=== PATIENT | female | born 1990 | race Caucasian/White ===

== ENCOUNTER 2020-06-09 15:57 | Outpatient (CLI) | payer MEDICAID ==
[~2020-06-09 15:57] MED LIST: DOCU-131 PO; IBUP-1222 PO; PREN1TAB56 PO
== END 2020-06-09 23:59 | disposition home or self-care (01) ==
LOC: STAR 15:57
PROVIDERS: ATTEND Obstetrics & Gynecology
DX: Z01.818 Encounter for other preprocedural examination (principal); Z11.59 Encounter for screening for other viral diseases
CPT/HCPCS: 36415; 87635

== ENCOUNTER 2020-06-18 04:46 | Inpatient (IN) | payer MEDICAID ==
[~2020-06-18] VITALS: Ht 162.6 cm; Wt 71.0 kg
[2020-06-18] MEDS ORDERED: OXYTOCIN 30U/ 0.9% NaCL 500ML 500 ML IV ONE (06:02)
[2020-06-18] MEDS ORDERED: OXYTOCIN 30U/ 0.9% NaCL 500ML 500 ML IV PRN (06:02)
[2020-06-18] MEDS ORDERED: D5%-LACTATED RINGERS 1,000 ML IV SCH (06:02)
[2020-06-18] MEDS ORDERED: OXYTOCIN 30U/ 0.9% NaCL 500ML 500 ML ONE ×2 (06:06→12:49)
[2020-06-18] MEDS ORDERED: LIDOCAINE 1%, 20ML ONE (06:06)
[2020-06-18] MEDS ORDERED: NEWBORN KIT ONE (06:06)
[2020-06-18] MEDS ORDERED: MISOPROSTOL 200 MCG TABLET ONE (06:06)
[2020-06-18 06:15] VITALS: BP 118/74
[2020-06-18 06:25] LABS: BASOPHILS # (AUTO) 0.03 x10^3/uL (0-0.1); BASOPHILS % (AUTO) 0 % (0-1); EOSINOPHILS # (AUTO) 0.13 x10^3/uL (0-0.4); EOSINOPHILS % (AUTO) 2 % (1-7); LYMPHOCYTES # (AUTO) 1.91 x10^3/uL (1-3.4); LYMPHOCYTES % (AUTO) 28 % (22-44); MD NO; MEAN CORPUSCULAR HEMOGLOBIN 29.7 pg (27.0-34.8); MEAN CORPUSCULAR HGB CONC 33.1 g/dL (32.4-35.8); MEAN CORPUSCULAR VOLUME 89.7 fL (80-100); MEAN PLATELET VOLUME 8.7 fL (7.4-10.4); MONOCYTES # (AUTO) 0.44 x10^3/uL (0.2-0.8); MONOCYTES % (AUTO) 6 % (2-9); NEUTROPHILS % (AUTO) 64 % (42-75); PLATELET COUNT 205 x10^3/uL (130-400); RED BLOOD COUNT 4.41 x10^6/uL (3.82-5.3); RED CELL DISTRIBUTION WIDTH 15.8 % (9.6-15.2)
[2020-06-18] MEDS: LACTATED RINGERS 1,000 ML IV SCH ×2 (06:25→11:27)
[2020-06-18] MEDS ORDERED: CALCIUM CARBONATE 500 MG TAB.CHEW PO PRN ×2 (06:30→12:00)
[2020-06-18] MEDS ORDERED: TERBUTALINE 1 MG/ML, 1ML SQ PRN (06:30)
[2020-06-18] MEDS ORDERED: METOCLOPRAMIDE 5 MG/ML, 2ML IVPush PRN (06:30)
[2020-06-18] MEDS ORDERED: PLEASE ENTER HEIGHT AND WEIGHT MC SCH (06:30)
[2020-06-18] MEDS ORDERED: ONDANSETRON 2MG/ML, 2ML IVPush PRN (06:30)
[2020-06-18] MEDS ORDERED: SODIUM CITRATE/CITRIC ACID 30 ML UDC PO PRN (06:30)
[2020-06-18] MEDS ORDERED: TERBUTALINE 1 MG/ML, 1ML IVPush PRN (06:30)
[2020-06-18] MEDS ORDERED: FENTANYL PF 100 MCG/2ML IVPush PRN (06:30)
[2020-06-18] MEDS ORDERED: FENTANYL PF 100 MCG/2ML IV PRN (06:30)
[2020-06-18] MEDS ORDERED: OXYTOCIN 30U/ 0.9% NaCL 500ML 500 ML IV SCH (11:35)
[2020-06-18] MEDS ORDERED: ACETAMINOPHEN 325 MG TABLET PO PRN ×2 (12:00)
[2020-06-18] MEDS ORDERED: BISACODYL 10 MG SUPP PR PRN (12:00)
[2020-06-18] MEDS ORDERED: MISOPROSTOL 200 MCG TABLET PR PRN (12:00)
[2020-06-18] MEDS ORDERED: SIMETHICONE 80 MG CHEW TAB PO PRN (12:00)
[2020-06-18] MEDS ORDERED: ONDANSETRON 2MG/ML, 2ML IV PRN (12:00)
[2020-06-18] MEDS ORDERED: HYDROcodone/APAP 5/325 TABLET PO PRN ×2 (12:00)
[2020-06-18] MEDS ORDERED: IBUPROFEN 600 MG TABLET ONE (12:18)
[2020-06-18] MEDS ORDERED: HYDROcodone/APAP 5/325 TABLET ONE (12:20)
[2020-06-18] MEDS: OXYTOCIN 30U/ 0.9% NaCL 500ML 500 ML IV SCH ×2 (12:51→21:35)
[2020-06-18] MEDS ORDERED: HEMORRHOIDAL SUPP.RECT PR PRN (13:30)
[2020-06-18 14:00] VITALS: BP 110/64
[2020-06-18 16:54] VITALS: BP 107/73
[2020-06-18 19:28] LABS: BASOPHILS # (AUTO) 0.02 x10^3/uL (0-0.1); BASOPHILS % (AUTO) 0 % (0-1); EOSINOPHILS # (AUTO) 0.04 x10^3/uL (0-0.4); EOSINOPHILS % (AUTO) 0 % (1-7); LYMPHOCYTES # (AUTO) 1.42 x10^3/uL (1-3.4); LYMPHOCYTES % (AUTO) 11 % (22-44); MD NO; MEAN CORPUSCULAR HEMOGLOBIN 29.3 pg (27.0-34.8); MEAN CORPUSCULAR HGB CONC 32.4 g/dL (32.4-35.8); MEAN CORPUSCULAR VOLUME 90.7 fL (80-100); MEAN PLATELET VOLUME 8.4 fL (7.4-10.4); MONOCYTES # (AUTO) 0.49 x10^3/uL (0.2-0.8); MONOCYTES % (AUTO) 4 % (2-9); NEUTROPHILS # (AUTO) 10.46 x10^3/uL (1.8-6.8); NEUTROPHILS % (AUTO) 84 % (42-75); PLATELET COUNT 181 x10^3/uL (130-400); RED BLOOD COUNT 4.16 x10^6/uL (3.82-5.3); RED CELL DISTRIBUTION WIDTH 15.4 % (9.6-15.2)
[2020-06-18 20:12] VITALS: BP 109/75
[2020-06-18] MEDS: DOCUSATE 100 MG CAPSULE PO PRN (20:15)
[2020-06-18] MEDS: IBUPROFEN 600 MG TABLET PO PRN (20:15)
[2020-06-19 00:23] VITALS: BP 110/75
[2020-06-19 05:19] VITALS: BP 112/74
[2020-06-19 09:00] VITALS: BP 100/68
[2020-06-19] MEDS ORDERED: PRENATAL VIT/IRON/FA 1 EACH TABLET PO SCH (09:00)
[2020-06-19] MEDS: IBUPROFEN 600 MG TABLET PO PRN (09:21)
[2020-06-19] MEDS: DOCUSATE 100 MG CAPSULE PO PRN (09:22)
== END 2020-06-19 16:30 | disposition home or self-care (01) | DRG 807 ==
LOC: LDIP 06:01 → 2NW 13:19
PROVIDERS: ADMIT Obstetrics & Gynecology; ATTEND Obstetrics & Gynecology
PROC: 10E0XZZ Delivery of Products of Conception, External Approach (ICD-10-PCS; principal; 2020-06-18)
PROC: 10907ZC Drainage of Amniotic Fluid, Therapeutic from Products of Conception, Via Natural or Artificial Opening (ICD-10-PCS; 2020-06-18)
PROC: 3E033VJ Introduction of Other Hormone into Peripheral Vein, Percutaneous Approach (ICD-10-PCS; 2020-06-18)
DX: O69.81X0 Labor and delivery complicated by cord around neck, without compression, not applicable or unspecified (principal); Z37.0 Single live birth; O99.52 Diseases of the respiratory system complicating childbirth; J45.909 Unspecified asthma, uncomplicated; Z3A.39 39 weeks gestation of pregnancy; Z82.3 Family history of stroke; Z82.49 Family history of ischemic heart disease and other diseases of the circulatory system; Z83.3 Family history of diabetes mellitus; Z87.410 Personal history of cervical dysplasia
CPT/HCPCS: 36415; 85025; 86592; 86850; 86900; G0378; J2590; J7120